=== PATIENT | female | born 1975 | race American Indian/Alaskan Native ===

== ENCOUNTER 2021-09-29 08:22 | Emergency (ER) | payer SELFPAY ==
--- NOTE | 2021-09-29 08:48 | Cat Scan Report ---
CT head/brain wo con INDICATION / CLINICAL INFORMATION: 46 years Female; CODE STROKE CALL [phone]. TECHNIQUE: Routine CT head without contrast. All CT scans at this location are performed using CT dos e reduction for ALARA by means of automated exposure control. COMPARISON: None. FINDINGS: BRAIN / INTRACRANIAL CONTENTS: There are foci of decreased attenuation involving cerebral white matte r which are nonspecific though may reflect microvascular angiopathy. The ventricular system is within normal limits in size and configuration. There is no clear CT evidence of acute intracranial hemorrh age or significant mass effect. ORBITS: No significant abnormality of visualized orbits. SINUSES / MASTOIDS: No significant abnormality in the visualized paranasal sinuses or mastoid air hector ls. CRANIOCERVICAL JUNCTION: No significant abnormality. ADDITIONAL FINDINGS: None. IMPRESSION: 1. There is mild cerebral white matter disease as described without CT evidence of acute intracranial hemorrhage. The study was specified as code stroke and called emergently to Dr. lakhani in the ER at 7:40 AM [facility] standard time Signer Name: Salvador Cadena MD Signed: 09/29/2021 8:44 AM Workstation Name: [id number]
--- NOTE | 2021-09-29 09:01 | Emergency Department Report ---
Blank Doc - Documentation Documentation: [facility] Consult Note # Demographics Consult Type: Acute Stroke Level 1 (0-4.5 hrs) Patient Location: Emergency Room First Name: Zayda Last Name: Eliud Age: 46 Gender: Female Facility: [facility] Time of Initial Page ( Time): 09/29/2021, 08:21 Time of Return Call ( Time): 09/29/2021, 08:21 # HPI History: pt's mother had an IL last night. pt was at work and was felt to be "unstable" at work, rocking back and forth. having an unsteady gait. in the ED she was only repeating her mothers name # Scores Time of exam and NIHSS ( Time): 09/29/2021, 08:37 Level of Consciousness 1a: [0] = Alert; keenly responsive LOC Questions 1b: [1] = Answers one correctly LOC Commands 1c: [0] = Performs both tasks correctly Best Gaze 2: [0] = Normal Visual 3: [0] = No visual loss Facial Palsy 4: [0] = Normal symmetrical movements Motor Arm Left 5a: [0] = No drift Motor Arm Right 5b: [0] = No drift Motor Leg Left 6a: [0] = No drift Motor Leg Right 6b: [0] = No drift Limb Ataxia 7: [0] = Absent Sensory 8: [0] = Normal Best Language 9: [0] = No aphasia Dysarthria 10: [0] = Normal Extinction and Inattention 11: [0] = No abnormality NIHSS Total: 1 # Assessment Impression: Altered Mental Status HTN encephalopathy? # Plan Thrombolytic/Intervention: NOT IV Thrombolysis or IA Intervention candidate Thrombolytic Exclusion (< 3 hour window): non-disabling deficit Thrombolytic/Intraarterial Exclusion: IV thrombolytic and IA intervention considered but not recommended as this patient's symptoms are not clinically consistent with an assumed diagnosis of stroke Target Blood Pressure: ok for gradual BP lowering Imaging: (urgency: STAT): CT Angiogram Head and CT Angiogram Neck AND call back with results if abnormal # Logistics Telemedicine: Interactive 2 way audio and visual telecommunication technology was utilized during this visit
--- NOTE | 2021-09-29 09:11 | Cat Scan Report ---
CT angio neck INDICATION / CLINICAL INFORMATION: 46 years Female; stroke sx 100 ML OMNI 350 . TECHNIQUE: Thin cut axial images obtained through the head during IV bolus contrast administration. S agittal, coronal, and 3 plane MIP reconstructions performed by the technologist. NASCET type criteria used evaluate stenoses. All CT scans at this location are performed using CT dose reduction for ALAR A by means of automated exposure control. COMPARISON: None available. FINDINGS: CAROTID ARTERIES: There is no CTA evidence of significant stenosis involving cervical carotid arterie s by NASCET criteria. The carotid bifurcations are widely patent. 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 The right vertebr al artery is clearly dominant. The right uncovertebral joint hypertrophy at the junctional C4-5 level appears to result in mild narrowing of the right vertebral artery at this level. Otherwise, this ves ramy is unremarkable.. ARCH: The arch of vessels are unremarkable without significant focal stenosis. ADDITIONAL FINDINGS: There is anterior fusion at C5-6 and C6-7. IMPRESSION: There is no CTA evidence of significant stenosis involving cervical carotid arteries by NASCET to cri teria. 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 There is mild narrowing of the right vertebral artery related to the uncovertebral joint hypertrophy at the junctional C4-5 level as described. Signer Name: Salvador Cadena MD Signed: 09/29/2021 9:07 AM Workstation Name: [id number]
[2021-09-29 09:19] LABS: Basophils # (Auto) 0.1 K/mm3 (0.0-0.1); Eosinophils # (Auto) 0.3 K/mm3 (0.0-0.4); Eosinophils % (Auto) 5.6 % (0.0-4.3); Hematocrit 41.7 % (30.3-42.9); Hemoglobin 13.3 gm/dl (10.1-14.3); Lymphocytes # (Auto) 2.3 K/mm3 (1.2-5.4); Lymphocytes % (Auto) 43.3 % (13.4-35.0); Mean Corpuscular HGB Conc 32 % (30-34); Mean Corpuscular Volume 91 fl (79-97); Monocytes # (Auto) 0.2 K/mm3 (0.0-0.8); Platelet Count 514 K/mm3 (140-440); Red Blood Count 4.59 M/mm3 (3.65-5.03); Red Cell Distribution Width 16.6 % (13.2-15.2)
[2021-09-29 09:25] LABS: INR 0.84 (0.87-1.13)
[2021-09-29 09:26] LABS: Partial Thromboplastin Time 23.9 Sec. (24.2-36.6); Thrombin Time 17.8 Sec. (15.1-19.6)
[2021-09-29] MEDS ORDERED: METOPROLOL TARTRATE 5 MG/5 ML INJ IV NR (09:30)
[2021-09-29] MEDS ORDERED: SODIUM CHLORIDE 0.9% 1000 ML 1,000 ML IV ONE (09:30)
[2021-09-29 09:35] LABS: Alanine Aminotransferase 27 units/L (7-56); Albumin 4.6 g/dL (3.9-5); BUN/Creatinine Ratio 19; Blood Urea Nitrogen 13 mg/dL (7-17); Calcium 8.9 mg/dL (8.4-10.2); Creatine Kinase MB 7.2 ng/mL (0.0-4.0); Hemolysis Index 3
[2021-09-29 09:57] LABS: Bilirubin,Urine NEG (Negative); Blood,Urine LG (Negative); Color,Urine Red (Yellow); Urobilinogen,Urine < 2.0 mg/dL (<2.0)
[2021-09-29 09:58] LABS: RBC,Urine > 182.0 /HPF (0.0-6.0)
[2021-09-29 10:00] LABS: Amphetamine Screen,Urine Negative; Benzodiazepines Screen,Urine Negative; Cannabinoid Screen,Urine Negative; Cocaine Screen,Urine Negative; Methadone Screen,Urine Negative; Opiate Screen,Urine Negative
--- NOTE | 2021-09-29 10:05 | XRay Report ---
CHEST 1 VIEW INDICATION / CLINICAL INFORMATION: cva. COMPARISON: None available. FINDINGS: SUPPORT DEVICES: None. HEART / MEDIASTINUM: No significant abnormality. LUNGS / PLEURA: No significant pulmonary or pleural abnormality. No pneumothorax. ADDITIONAL FINDINGS: No significant additional findings. IMPRESSION: 1. No acute findings. Signer Name: Jerzy Ballard MD Signed: 09/29/2021 10:01 AM Workstation Name: [id number]
[2021-09-29] MEDS ORDERED: HALOPERIDOL LACTATE 5 MG/1 ML INJ IM ONE (10:42)
[2021-09-29] MEDS ORDERED: THIAMINE 100 MG, FOLIC ACID 1 MG, MULTIPLE VITAMIN INJ, ADULT 10 ML in SODIUM CHLORIDE ... IV ONE (11:00)
--- NOTE | 2021-09-29 14:05 | Emergency Department Report ---
ED General Adult HPI - General Chief complaint: Neuro Symptoms/Deficit Stated complaint: POSS CVA Time Seen by Provider: 09/29/21 08:27 Source: EMS Mode of arrival: Wheelchair Limitations: Altered Mental Status - History of Present Illness Initial comments: PT WAS AT WORK WHEN SHE BECAME ALTERED WITH UNSTEADY GAIT. pt was franca in from work for possible stroke, , co wrokers saw her acting weird and swinging and called EMS , pt;s mother had recent MO on arrival she was awake but confused very shaky and appears as if she is intoxicated was rolled to CT for head CT -: Gradual, hour(s) Improves with: none Worsens with: none Associated Symptoms: confusion. denies: headaches, loss of appetite, malaise, nausea/vomiting Treatments Prior to Arrival: none - Related Data Allergies Allergy/AdvReac Type Severity Reaction Status Date / Time No Known Allergies Allergy Verified 09/29/21 09:23 ED Review of Systems ROS: Stated complaint: POSS CVA Other details as noted in HPI Comment: Unobtainable due to pts medical conditions ED Past Medical Hx - Past Medical History Previous Medical History?: No Hx Hypertension: No Hx CVA: No ED Physical Exam - General Limitations: Altered Mental Status General appearance: appears intoxicated, lethargic - Head Head exam: Present: atraumatic, normocephalic - Eye Eye exam: Present: normal appearance Pupils: Present: normal accommodation - ENT ENT exam: Present: normal exam, mucous membranes moist - Neck Neck exam: Present: normal inspection - Respiratory Respiratory exam: Present: normal lung sounds bilaterally. Absent: respiratory distress, prolonged expiratory - Cardiovascular Cardiovascular Exam: Present: regular rate, normal rhythm - GI/Abdominal GI/Abdominal exam: Present: soft. Absent: distended, tenderness, guarding - Expanded Neurological Exam Expanded Patient oriented to: Absent: person, place, time Speech: Absent: expressive aphasia Cerebellar function: Finger to Nose: Abnormal Right, Abnormal Left Motor strength exam: RUE: 4, LUE: 4, RLE: 4, LLE: 4 Best Eye Response ([place]): (4) open spontaneously Best Motor Response ([place]): (6) obeys commands Best Verbal Response ([place]): (4) confused conversation [place] Total: 14 ED Course Vital Signs 09/29/21 09/29/21 09/29/21 08:59 09:00 09:15 Pulse Rate 123 H Respiratory 19 Rate Blood Pressure 140/90 O2 Sat by Pulse 95 94 97 Oximetry 09/29/21 09/29/21 09/29/21 09:29 09:31 09:45 Pulse Rate 120 H 116 H 103 H Respiratory 26 H 29 H Rate Blood Pressure 133/88 133/88 143/99 O2 Sat by Pulse 96 95 Oximetry 09/29/21 09/29/21 09/29/21 10:01 10:15 10:31 Pulse Rate 106 H 108 H Respiratory 21 26 H Rate Blood Pressure 143/99 143/99 143/99 O2 Sat by Pulse 96 98 98 Oximetry 09/29/21 09/29/21 10:45 10:57 Pulse Rate Respiratory Rate Blood Pressure 153/92 O2 Sat by Pulse 98 99 Oximetry ED Medical Decision Making - Lab Data Result diagrams: 09/29/21 09:07 09/29/21 09:07 - EKG Data -: EKG Interpreted by De EKG shows normal: sinus rhythm - Radiology Data Radiology results: report reviewed, image reviewed - Medical Decision Making stroke alert on arrival , ct head negative for bleed , spoke with Dr miller neurologist , not candidate for TPA , last known normal unknown , high blood pressure on rrival and non disabling deficit , cta negative , work up showed alcohol level of 450, pt admit to drinking . fluids and banan bag administered , gradually got better , back to her basline by 2 pm, mother jenny will come pick her up, spoke with dr Lopez updated her about course and she is ok with discharging her Critical Care Time: Yes Critical care time in (mins) excluding proc time.: 45 Critical care attestation.: If time is entered above; I have spent that time in minutes in the direct care of this critically ill patient, excluding procedure time. Critical Care Time: 45 ED Disposition Clinical Impression: Altered mental status, Alcohol abuse Disposition: 01 HOME / SELF CARE / HOMELESS Is pt being admited?: No Does the pt Need Aspirin: No Condition: Stable Instructions: Alcohol Use Disorder, Alcohol Abuse and Nutrition Referrals: PRIMARY CARE, [Primary Care Provider] - 3-5 Days
[2021-09-29 14:24] VITALS: BP 142/82
--- NOTE | 2021-09-30 08:38 | Cat Scan Report ---
CTA head with intravenous contrast CLINICAL HISTORY: stroke sx TECHNIQUE: 0.625 mm thick contiguous axial scans were obtained from the skull base to the skull vertex during r apid bolus administration of intravenous contrast material. Multiplanar reconstructions were produced in the coronal and sagittal planes. In addition 3 plane MIP instructions were produced and reviewed for this report. The axial source images and reconstructed images were reviewed for this report. CONTRAST DOSE REPORT: Omnipaque 350: 100 ml administered intravenously. All CT scans at this location are performed using CT dose reduction for ALARA by means of automated e xposure control. FINDINGS: Internal carotid arteries:Morgan, cavernous, opthalmic, clinoid and supraclinoid segments of the ICAs have an unremarkable appearance. Middle cerebral arteries:Normal and symmetrical M1 segments of the middle cerebral arteries are demon strated. No abnormalities are seen on evaluation of the insular or opercular branches. Anterior cerebral arteries:Bilaterally symmetrical A1 segments are demonstrated. No abnormalities are seen along the course of the A2 segments or their visualized pericallosal branches. A small anterior communicating artery is identified. Vertebral arteries: Right vertebral artery is dominant. Both vertebral arteries contribute to the bas ilar artery origin. Basilar artery:Basilar artery has an unremarkable appearance. Posterior cerebral arteries:Bilaterally symmetrical posterior cerebral arteries are identified. Post erior communicating arteries are identified bilaterally. [place]: Intact. See above. Dural sinuses: Dural venous sinuses are well demonstrated on this exam. There is no evidence of dural sinus thrombosis. IMPRESSION: 1. No indication of intercranial stenosis or large vessel occlusion. Signer Name: Hilario Hernadez MD Signed: 09/30/2021 8:33 AM Workstation Name: [id number]
--- NOTE | 2021-10-01 10:19 | Electrocardiograph Report ---
[facility] Test Date: 2021-09-29 Test Time: 10:03:57 Pat Name: EMEKA PORTER Department: Room: Gender: F Superintendent Division: [facility] : 1975 Requested By: DUDLEY LONGORIA Order Number: [id number] Reading MD: Devonte Villafuerte Measurements Intervals [place] Rate: 109 P: 83 NM: 147 QRS: 26 QRSD: 82 T: 30 QT: 336 QTc: 452 Interpretive Statements Sinus tachycardia PRWP No previous ECG available for comparison Electronically Signed On 10-01-2021 10:18:55 EDT by Devonte Villafuerte
== END 2021-09-29 16:30 | disposition home or self-care (01) ==
LOC: ED 08:22
DX: R41.82 Altered mental status, unspecified (principal); F10.10 Alcohol abuse, uncomplicated
CPT/HCPCS: 36415; 70450; 70496; 70498; 71045; 80053; 80307; 81001; 82550; 82553; 84484; 84702; 85025; 85610; 85670; 85730; 87086; 93005; 96361; 96365; 96366; 96372; 96375; 99285; J1630; J3411; J3490; J7030; J9280; Q9967; 80320; Q0162; G0480